=== PATIENT | female | born 1980 | race Caucasian/White ===

== ENCOUNTER 2018-04-01 10:04 | Outpatient (CLI) | payer OTHER ==
[2018-04-01 10:48] LABS: MICROSCOPIC INDICATED
[2018-04-01 11:17] LABS: BASOPHILS # (AUTO) 0.03 x10^3/uL (0-0.1); BASOPHILS % (AUTO) 1 % (0-1); EOSINOPHILS # (AUTO) 0.12 x10^3/uL (0-0.4); EOSINOPHILS % (AUTO) 2 % (1-7); LYMPHOCYTES # (AUTO) 0.81 x10^3/uL (1-3.4); LYMPHOCYTES % (AUTO) 13 % (22-44); MD NO; MEAN CORPUSCULAR HEMOGLOBIN 30.2 pg (27.0-34.8); MEAN CORPUSCULAR HGB CONC 34.5 g/dL (32.4-35.8); MEAN CORPUSCULAR VOLUME 87.8 fL (80-100); MEAN PLATELET VOLUME 9.1 fL (7.4-10.4); MONOCYTES # (AUTO) 0.44 x10^3/uL (0.2-0.8); MONOCYTES % (AUTO) 7 % (2-9); NEUTROPHILS # (AUTO) 4.75 x10^3/uL (1.8-6.8); NEUTROPHILS % (AUTO) 77 % (42-75); PLATELET COUNT 226 x10^3/uL (130-400); RED BLOOD COUNT 4.31 x10^6/uL (3.82-5.3); RED CELL DISTRIBUTION WIDTH 15.2 % (9.6-15.2)
[2018-04-01 11:21] LABS: ALANINE AMINOTRANSFERASE 35 U/L (12-78); ALBUMIN 2.5 g/dL (3.4-5.0); ANION GAP 8 mmol/L (5-15); CALCIUM 8.5 mg/dL (8.5-10.1); CHLORIDE 109 mmol/L (98-107); CREATININE 0.65 mg/dL (0.55-1.02)
[2018-04-01 11:26] LABS: ALKALINE PHOSPHATASE 224 U/L (45-117); BILIRUBIN, DIRECT 0.2 mg/dL (0.1-0.2); BILIRUBIN,TOTAL 0.5 mg/dL (0.2-1.0); TOTAL PROTEIN 6.9 g/dL (6.4-8.2)
[2018-04-01 11:36] VITALS: BP 147/82
[2018-04-01] MEDS ORDERED: PREN1TAB60 PO (11:59)
[2018-04-01] MEDS ORDERED: LABE200T6 PO (12:00)
== END 2018-04-01 12:12 | disposition home or self-care (01) ==
LOC: LDOP 10:04
PROVIDERS: ATTEND Obstetrics & Gynecology
DX: O13.3 Gestational [pregnancy-induced] hypertension without significant proteinuria, third trimester (principal); O24.419 Gestational diabetes mellitus in pregnancy, unspecified control; O14.93 Unspecified pre-eclampsia, third trimester; O34.219 Maternal care for unspecified type scar from previous cesarean delivery; Z3A.38 38 weeks gestation of pregnancy
CPT/HCPCS: 36415; 59025; 80053; 81001; 82248; 82570; 84156; 84550; 85025; 99201; G0463

== ENCOUNTER 2018-04-08 06:07 | Inpatient (IN) | payer OTHER ==
[~2018-04-08] VITALS: Ht 157.5 cm; Wt 112.0 kg
[~2018-04-08 06:07] MED LIST: LABE200T6 PO; PREN1TAB60 PO
[2018-04-08] MEDS ORDERED: OXYTOCIN 30U/ 0.9% NaCL 500ML 500 ML IV SCH (06:34)
[2018-04-08] MEDS ORDERED: LACTATED RINGERS 1,000 ML IV SCH ×2 (06:34→07:00)
[2018-04-08 06:53] LABS: BASOPHILS # (AUTO) 0.02 x10^3/uL (0-0.1); BASOPHILS % (AUTO) 0 % (0-1); EOSINOPHILS # (AUTO) 0.35 x10^3/uL (0-0.4); EOSINOPHILS % (AUTO) 5 % (1-7); LYMPHOCYTES # (AUTO) 0.94 x10^3/uL (1-3.4); LYMPHOCYTES % (AUTO) 13 % (22-44); MD NO; MEAN CORPUSCULAR HEMOGLOBIN 29.7 pg (27.0-34.8); MEAN CORPUSCULAR HGB CONC 34.3 g/dL (32.4-35.8); MEAN CORPUSCULAR VOLUME 86.8 fL (80-100); MEAN PLATELET VOLUME 8.5 fL (7.4-10.4); MONOCYTES # (AUTO) 0.55 x10^3/uL (0.2-0.8); MONOCYTES % (AUTO) 7 % (2-9); NEUTROPHILS # (AUTO) 5.61 x10^3/uL (1.8-6.8); NEUTROPHILS % (AUTO) 75 % (42-75); PLATELET COUNT 211 x10^3/uL (130-400); RED BLOOD COUNT 4.21 x10^6/uL (3.82-5.3); RED CELL DISTRIBUTION WIDTH 15.1 % (9.6-15.2)
[2018-04-08] MEDS ORDERED: METOCLOPRAMIDE 5 MG/ML, 2ML IVPush ONE (07:00)
[2018-04-08] MEDS ORDERED: LACTATED RINGERS 1,000 ML IVBOLUS ONE (07:00)
[2018-04-08] MEDS ORDERED: CEFAZOLIN PMX 1GM/50ML 50 ML IVPB ONE (07:00)
[2018-04-08] MEDS ORDERED: ONDANSETRON 2MG/ML, 2ML ONE (07:19)
[2018-04-08] MEDS ORDERED: DEXAMETHASONE 4 MG/ML, 1ML ONE (07:19)
[2018-04-08] MEDS ORDERED: FENTANYL PF 100 MCG/2ML ONE (07:19)
[2018-04-08] MEDS ORDERED: EPHEDRINE 50 MG/ML, 1ML ONE (07:19)
[2018-04-08] MEDS ORDERED: CEFAZOLIN 1,000 MG ONE (07:19)
[2018-04-08] MEDS ORDERED: PHENYLEPHRINE 10 MG/ML ONE (07:19)
[2018-04-08] MEDS ORDERED: OXYTOCIN 10 UNITS/ML, 1ML ONE (07:19)
[2018-04-08] MEDS ORDERED: KETOROLAC 30 MG/1 ML ONE ×2 (07:19→16:09)
[2018-04-08] MEDS: SODIUM CITRATE/CITRIC ACID 30 ML UDC PO SCH ×4 (07:27→21:00)
[2018-04-08] MEDS: LACTATED RINGERS 1,000 ML IV SCH ×5 (07:30→20:07)
[2018-04-08] MEDS: OXYTOCIN 30U/ 0.9% NaCL 500ML 500 ML IV SCH ×2 (07:30→17:30)
[2018-04-08] MEDS ORDERED: MISOPROSTOL 200 MCG TABLET PR PRN (07:30)
[2018-04-08] MEDS ORDERED: MEPERIDINE/PF 25MG/0.5ML IVPush PRN (07:30)
[2018-04-08] MEDS ORDERED: ALBUTEROL SULFATE 2.5 MG/3 ML NPPB PRN (07:30)
[2018-04-08] MEDS ORDERED: ACETAMINOPHEN 325 MG TABLET PO PRN ×2 (07:30)
[2018-04-08] MEDS ORDERED: ONDANSETRON 2MG/ML, 2ML IV PRN (07:30)
[2018-04-08] MEDS ORDERED: morphine SULFATE 10 MG/ML, 1ML IVPush PRN (07:30)
[2018-04-08] MEDS ORDERED: EPHEDRINE 50 MG/ML, 1ML IVPush PRN (07:30)
[2018-04-08] MEDS ORDERED: hydrALAzine 20 MG/ML, 1ML IV PRN (07:30)
[2018-04-08] MEDS ORDERED: LABETALOL 5MG/ML, 20ML IV PRN (07:30)
[2018-04-08] MEDS ORDERED: HYDROcodone/APAP 7.5-325MG/15ML UDC PO PRN (07:30)
[2018-04-08] MEDS ORDERED: MEPERIDINE/PF 50 MG/ML IM PRN (07:30)
[2018-04-08] MEDS ORDERED: IBUPROFEN 600 MG TABLET PO PRN (07:30)
[2018-04-08] MEDS ORDERED: MIDAZOLAM 1 MG/ML, 2ML IV PRN (07:30)
[2018-04-08] MEDS ORDERED: METOCLOPRAMIDE 5 MG/ML, 2ML IV PRN (07:30)
[2018-04-08] MEDS ORDERED: OXYcodone 5 MG/5 ML ORAL.SOL UDC PO PRN (07:30)
[2018-04-08] MEDS ORDERED: ONDANSETRON 2MG/ML, 2ML IVPush PRN (07:30)
[2018-04-08] MEDS ORDERED: HYDROmorphone 1 MG/ML, 1ML IV PRN (07:30)
[2018-04-08] MEDS ORDERED: PROMETHAZINE 25 MG/ML, 1ML IV PRN (07:30)
[2018-04-08] MEDS ORDERED: FENTANYL PF 100 MCG/2ML IV PRN (07:30)
[2018-04-08] MEDS ORDERED: CARBOPROST TROMETHAMINE 250 MCG/ML, 1ML IM PRN (07:30)
[2018-04-08] MEDS: PRENATAL VIT/IRON/FA 1 EACH TABLET PO SCH (09:00)
[2018-04-08] MEDS ORDERED: OXYTOCIN 30U/ 0.9% NaCL 500ML 500 ML ONE (09:05)
[2018-04-08] MEDS ORDERED: DEXTROSE 40%, 37.5 GM GEL ONE (09:53)
[2018-04-08 11:45] VITALS: BP 135/81
[2018-04-08] MEDS: OXYcodone IR 5MG TABLET PO PRN (13:05)
[2018-04-08] MEDS: KETOROLAC 30 MG/1 ML IVPush SCH ×2 (16:13→22:41)
[2018-04-08 16:30] LABS: MEAN CORPUSCULAR HEMOGLOBIN 29.2 pg (27.0-34.8); MEAN CORPUSCULAR HGB CONC 33.4 g/dL (32.4-35.8); MEAN CORPUSCULAR VOLUME 87.3 fL (80-100); MEAN PLATELET VOLUME 9.5 fL (7.4-10.4); PLATELET COUNT 272 x10^3/uL (130-400); RED BLOOD COUNT 3.64 x10^6/uL (3.82-5.3); RED CELL DISTRIBUTION WIDTH 14.9 % (9.6-15.2)
[2018-04-08 16:47] LABS: BASOPHILS % (AUTO) 0 % (0-1); EOSINOPHILS # (AUTO) 0.02 x10^3/uL (0-0.4); EOSINOPHILS % (AUTO) 0 % (1-7); LYMPHOCYTES # (AUTO) 0.77 x10^3/uL (1-3.4); LYMPHOCYTES % (AUTO) 6 % (22-44); MD SCAN; MONOCYTES # (AUTO) 0.59 x10^3/uL (0.2-0.8); MONOCYTES % (AUTO) 5 % (2-9); NEUTROPHILS # (AUTO) 11.57 x10^3/uL (1.8-6.8); NEUTROPHILS % (AUTO) 89 % (42-75)
[2018-04-08 17:00] VITALS: BP 140/80
[2018-04-08 19:55] VITALS: BP 131/69
[2018-04-08] MEDS: LABETALOL 100 MG TABLET PO SCH (20:45)
[2018-04-08 23:40] VITALS: BP 108/72
[2018-04-09] MEDS: OXYcodone IR 5MG TABLET PO PRN ×3 (02:46→20:57)
[2018-04-09] MEDS: LACTATED RINGERS 1,000 ML IV SCH ×4 (03:30→20:16)
[2018-04-09] MEDS: OXYTOCIN 30U/ 0.9% NaCL 500ML 500 ML IV SCH ×3 (03:30→23:30)
[2018-04-09 04:50] VITALS: BP 136/85
[2018-04-09] MEDS: KETOROLAC 30 MG/1 ML IVPush SCH (04:58)
[2018-04-09] MEDS ORDERED: LACTATED RINGERS 1,000 ML IVBOLUS ONE ×2 (06:30→11:00)
[2018-04-09 07:29] VITALS: BP 138/71
[2018-04-09] MEDS: OXYcodone/APAP 5/325MG TABLET PO PRN (07:50)
[2018-04-09] MEDS: LABETALOL 100 MG TABLET PO SCH ×2 (07:50→17:17)
[2018-04-09] MEDS: PRENATAL VIT/IRON/FA 1 EACH TABLET PO SCH (07:50)
[2018-04-09] MEDS: DOCUSATE 100 MG CAPSULE PO PRN (07:50)
[2018-04-09 07:56] LABS: ALBUMIN 1.8 g/dL (3.4-5.0); ANION GAP 8 mmol/L (5-15); CALCIUM 7.8 mg/dL (8.5-10.1); CHLORIDE 109 mmol/L (98-107)
[2018-04-09 08:00] LABS: ALANINE AMINOTRANSFERASE 28 U/L (12-78); ALKALINE PHOSPHATASE 137 U/L (45-117); BILIRUBIN,TOTAL 0.4 mg/dL (0.2-1.0); CREATININE 1.57 mg/dL (0.55-1.02)
[2018-04-09] MEDS ORDERED: CYSTO CONRAY II 250 ML VIAL UR ONE (09:30)
[2018-04-09 11:30] VITALS: BP 134/73
[2018-04-09 13:00] LABS: MEAN CORPUSCULAR HEMOGLOBIN 30.6 pg (27.0-34.8); MEAN CORPUSCULAR HGB CONC 34.7 g/dL (32.4-35.8); MEAN CORPUSCULAR VOLUME 88.2 fL (80-100); MEAN PLATELET VOLUME 9.4 fL (7.4-10.4); PLATELET COUNT 201 x10^3/uL (130-400); RED BLOOD COUNT 2.08 x10^6/uL (3.82-5.3); RED CELL DISTRIBUTION WIDTH 15.2 % (9.6-15.2)
[2018-04-09] MEDS ORDERED: OMNIPAQUE 350 MG/ML, 50 ML BOTTLE ONE (13:00)
[2018-04-09 13:16] VITALS: BP 153/78
[2018-04-09 13:19] LABS: BASOPHILS # (AUTO) 0.03 x10^3/uL (0-0.1); BASOPHILS % (AUTO) 0 % (0-1); EOSINOPHILS # (AUTO) 0.07 x10^3/uL (0-0.4); EOSINOPHILS % (AUTO) 1 % (1-7); LYMPHOCYTES # (AUTO) 1.16 x10^3/uL (1-3.4); LYMPHOCYTES % (AUTO) 14 % (22-44); MD SCAN; MONOCYTES # (AUTO) 0.72 x10^3/uL (0.2-0.8); MONOCYTES % (AUTO) 9 % (2-9); NEUTROPHILS # (AUTO) 6.14 x10^3/uL (1.8-6.8); NEUTROPHILS % (AUTO) 76 % (42-75)
[2018-04-09] MEDS ORDERED: D5%-LACTATED RINGERS 1,000 ML IV SCH (14:00)
[2018-04-09 15:15] LABS: ALANINE AMINOTRANSFERASE 37 U/L (12-78); ALBUMIN 2.1 g/dL (3.4-5.0); ANION GAP 10 mmol/L (5-15); CALCIUM 7.9 mg/dL (8.5-10.1); CHLORIDE 104 mmol/L (98-107); CREATININE 1.34 mg/dL (0.55-1.02); MEAN CORPUSCULAR HEMOGLOBIN 30.7 pg (27.0-34.8); MEAN CORPUSCULAR HGB CONC 34.6 g/dL (32.4-35.8); MEAN CORPUSCULAR VOLUME 88.7 fL (80-100); MEAN PLATELET VOLUME 8.5 fL (7.4-10.4); PLATELET COUNT 214 x10^3/uL (130-400); RED BLOOD COUNT 2.19 x10^6/uL (3.82-5.3); RED CELL DISTRIBUTION WIDTH 15.4 % (9.6-15.2)
[2018-04-09 15:17] LABS: ALKALINE PHOSPHATASE 155 U/L (45-117); BILIRUBIN,TOTAL 0.3 mg/dL (0.2-1.0); TOTAL PROTEIN 5.4 g/dL (6.4-8.2)
[2018-04-09] MEDS ORDERED: LACTATED RINGERS 1,000 ML IV SCH (15:30)
[2018-04-09 16:30] VITALS: BP 135/71
[2018-04-09 16:36] LABS: MD YES
[2018-04-09 16:41] LABS: BAND#(MANUAL) 0.27 x10^3/uL; BANDS%(MANUAL) 3 % (0-7); LYMPH#(MANUAL) 1.08 x10^3/uL (1-3.4); LYMPHS% (MANUAL) 12 % (22-44); MONOS#(MANUAL) 0.63 x10^3/uL (0.3-2.7); MONOS% (MANUAL) 7 % (2-9); SEG#(MANUAL) 7.02 x10^3/uL (1.8-6.8); SEGS% (MANUAL) 78 % (42-75)
[2018-04-09 16:42] LABS: <PLATELET ESTIMATE> ADEQUATE; ANISOCYTOSIS 1+; POLYCHROMASIA 1+
[2018-04-09 16:43] LABS: <PLT MORPHOLOGY> NORMAL PLT MORPH
[2018-04-09] MEDS: FERROUS SULFATE 325 MG TABLET PO SCH (17:17)
[2018-04-09 20:15] VITALS: BP 119/71
[2018-04-10 00:01] VITALS: BP 122/73
[2018-04-10] MEDS: OXYTOCIN 30U/ 0.9% NaCL 500ML 500 ML IV SCH ×2 (01:27→19:30)
[2018-04-10] MEDS: OXYcodone IR 5MG TABLET PO PRN ×3 (03:38→19:27)
[2018-04-10 03:50] VITALS: BP 132/80
[2018-04-10 06:14] LABS: ANION GAP 7 mmol/L (5-15); CALCIUM 7.9 mg/dL (8.5-10.1); CHLORIDE 109 mmol/L (98-107)
[2018-04-10 06:15] LABS: MEAN CORPUSCULAR HEMOGLOBIN 31.5 pg (27.0-34.8); MEAN CORPUSCULAR VOLUME 87.4 fL (80-100); MEAN PLATELET VOLUME 8.7 fL (7.4-10.4); PLATELET COUNT 199 x10^3/uL (130-400); RED BLOOD COUNT 1.97 x10^6/uL (3.82-5.3); RED CELL DISTRIBUTION WIDTH 16.2 % (9.6-15.2)
[2018-04-10 06:38] LABS: BASOPHILS # (AUTO) 0.01 x10^3/uL (0-0.1); BASOPHILS % (AUTO) 0 % (0-1); EOSINOPHILS % (AUTO) 1 % (1-7); LYMPHOCYTES # (AUTO) 0.99 x10^3/uL (1-3.4); LYMPHOCYTES % (AUTO) 13 % (22-44); MD SCAN; MONOCYTES # (AUTO) 0.64 x10^3/uL (0.2-0.8); MONOCYTES % (AUTO) 8 % (2-9); NEUTROPHILS # (AUTO) 5.87 x10^3/uL (1.8-6.8); NEUTROPHILS % (AUTO) 77 % (42-75)
[2018-04-10 07:22] VITALS: BP 146/83
[2018-04-10] MEDS: LABETALOL 100 MG TABLET PO SCH ×2 (07:48→17:08)
[2018-04-10] MEDS: PRENATAL VIT/IRON/FA 1 EACH TABLET PO SCH (07:48)
[2018-04-10] MEDS: FERROUS SULFATE 325 MG TABLET PO SCH ×2 (07:48→17:07)
[2018-04-10] MEDS: DOCUSATE 100 MG CAPSULE PO PRN ×2 (07:48→19:27)
[2018-04-10 12:08] VITALS: BP 139/86
[2018-04-10 15:53] VITALS: BP 131/73
[2018-04-10 19:45] VITALS: BP 141/80
[2018-04-11 00:05] VITALS: BP 141/85
[2018-04-11] MEDS: OXYcodone IR 5MG TABLET PO PRN ×2 (01:27→16:11)
[2018-04-11] MEDS: LACTATED RINGERS 1,000 ML IV SCH ×3 (01:30→21:30)
[2018-04-11 04:35] VITALS: BP 144/91
[2018-04-11] MEDS: OXYTOCIN 30U/ 0.9% NaCL 500ML 500 ML IV SCH ×2 (05:30→15:30)
[2018-04-11 05:37] LABS: MEAN CORPUSCULAR HEMOGLOBIN 30.5 pg (27.0-34.8); MEAN CORPUSCULAR HGB CONC 34.1 g/dL (32.4-35.8); MEAN CORPUSCULAR VOLUME 89.2 fL (80-100); MEAN PLATELET VOLUME 8.8 fL (7.4-10.4); PLATELET COUNT 212 x10^3/uL (130-400); RED BLOOD COUNT 1.91 x10^6/uL (3.82-5.3); RED CELL DISTRIBUTION WIDTH 15.9 % (9.6-15.2)
[2018-04-11 05:56] LABS: BASOPHILS # (AUTO) 0.02 x10^3/uL (0-0.1); BASOPHILS % (AUTO) 0 % (0-1); EOSINOPHILS # (AUTO) 0.22 x10^3/uL (0-0.4); EOSINOPHILS % (AUTO) 3 % (1-7); LYMPHOCYTES % (AUTO) 14 % (22-44); MD SCAN; MONOCYTES # (AUTO) 0.54 x10^3/uL (0.2-0.8); MONOCYTES % (AUTO) 8 % (2-9); NEUTROPHILS # (AUTO) 5.31 x10^3/uL (1.8-6.8); NEUTROPHILS % (AUTO) 75 % (42-75)
[2018-04-11 08:39] VITALS: BP 146/89
[2018-04-11] MEDS: PRENATAL VIT/IRON/FA 1 EACH TABLET PO SCH (08:48)
[2018-04-11] MEDS: DOCUSATE 100 MG CAPSULE PO PRN (08:48)
[2018-04-11] MEDS: OXYcodone/APAP 5/325MG TABLET PO PRN (08:48)
[2018-04-11] MEDS: FERROUS SULFATE 325 MG TABLET PO SCH ×2 (08:48→17:55)
[2018-04-11] MEDS: LABETALOL 100 MG TABLET PO SCH ×2 (08:49→17:55)
[2018-04-11 12:09] VITALS: BP 148/97
[2018-04-11 16:32] VITALS: BP 146/84
[2018-04-11 19:55] VITALS: BP 146/86
[2018-04-11 21:51] LABS: BASOPHILS # (AUTO) 0.07 x10^3/uL (0-0.1); BASOPHILS % (AUTO) 1 % (0-1); EOSINOPHILS # (AUTO) 0.33 x10^3/uL (0-0.4); EOSINOPHILS % (AUTO) 3 % (1-7); LYMPHOCYTES # (AUTO) 1.08 x10^3/uL (1-3.4); LYMPHOCYTES % (AUTO) 11 % (22-44); MD NO; MEAN CORPUSCULAR HEMOGLOBIN 30.3 pg (27.0-34.8); MEAN PLATELET VOLUME 8.4 fL (7.4-10.4); MONOCYTES # (AUTO) 0.75 x10^3/uL (0.2-0.8); MONOCYTES % (AUTO) 8 % (2-9); NEUTROPHILS # (AUTO) 7.35 x10^3/uL (1.8-6.8); NEUTROPHILS % (AUTO) 77 % (42-75); PLATELET COUNT 276 x10^3/uL (130-400); RED BLOOD COUNT 2.16 x10^6/uL (3.82-5.3); RED CELL DISTRIBUTION WIDTH 15.6 % (9.6-15.2)
[2018-04-12 00:05] VITALS: BP 137/86
[2018-04-12] MEDS: DOCUSATE 100 MG CAPSULE PO PRN ×2 (00:07→09:20)
[2018-04-12] MEDS: OXYcodone IR 5MG TABLET PO PRN ×2 (00:07→09:20)
[2018-04-12] MEDS: OXYTOCIN 30U/ 0.9% NaCL 500ML 500 ML IV SCH ×2 (01:30→11:30)
[2018-04-12 03:55] VITALS: BP 141/87
[2018-04-12 05:06] LABS: BASOPHILS # (AUTO) 0.03 x10^3/uL (0-0.1); BASOPHILS % (AUTO) 0 % (0-1); EOSINOPHILS # (AUTO) 0.26 x10^3/uL (0-0.4); EOSINOPHILS % (AUTO) 4 % (1-7); LYMPHOCYTES % (AUTO) 11 % (22-44); MD NO; MEAN CORPUSCULAR HEMOGLOBIN 30.7 pg (27.0-34.8); MEAN CORPUSCULAR HGB CONC 34.2 g/dL (32.4-35.8); MEAN CORPUSCULAR VOLUME 89.7 fL (80-100); MEAN PLATELET VOLUME 8.3 fL (7.4-10.4); MONOCYTES # (AUTO) 0.51 x10^3/uL (0.2-0.8); MONOCYTES % (AUTO) 7 % (2-9); NEUTROPHILS # (AUTO) 5.96 x10^3/uL (1.8-6.8); NEUTROPHILS % (AUTO) 79 % (42-75); PLATELET COUNT 254 x10^3/uL (130-400); RED BLOOD COUNT 2.02 x10^6/uL (3.82-5.3); RED CELL DISTRIBUTION WIDTH 15.8 % (9.6-15.2)
[2018-04-12 06:55] VITALS: BP 163/91
[2018-04-12] MEDS: LACTATED RINGERS 1,000 ML IV SCH (07:30)
[2018-04-12] MEDS ORDERED: LABETALOL 200 MG TABLET PO SCH (09:00)
[2018-04-12] MEDS: PRENATAL VIT/IRON/FA 1 EACH TABLET PO SCH (09:19)
[2018-04-12] MEDS: FERROUS SULFATE 325 MG TABLET PO SCH (09:19)
[2018-04-12 10:33] LABS: CULTURE INDICATED? YES; MICROSCOPIC INDICATED
[2018-04-12] MEDS ORDERED: DOCU-131 PO (11:39)
[2018-04-12] MEDS ORDERED: FERR325T23 PO (11:41)
[2018-04-12] MEDS ORDERED: OXYC-307 PO (11:42)
[2018-04-14] MEDS ORDERED: IBUPROFEN 600 MG TABLET PO PRN
== END 2018-04-12 12:20 | disposition home or self-care (01) | DRG 765 ==
LOC: LDIP 06:07 → 2NW 10:53
PROVIDERS: ADMIT Obstetrics & Gynecology; ATTEND Obstetrics & Gynecology
PROC: 10D00Z1 Extraction of Products of Conception, Low, Open Approach (ICD-10-PCS; principal; 2018-04-08)
PROC: 0UB70ZZ Excision of Bilateral Fallopian Tubes, Open Approach (ICD-10-PCS; 2018-04-08)
PROC: 0T9B70Z Drainage of Bladder with Drainage Device, Via Natural or Artificial Opening (ICD-10-PCS; 2018-04-12)
DX: O34.211 Maternal care for low transverse scar from previous cesarean delivery (principal); Z68.42 Body mass index [BMI] 45.0-49.9, adult; Z37.0 Single live birth; O99.214 Obesity complicating childbirth; E66.01 Morbid (severe) obesity due to excess calories; O16.4 Unspecified maternal hypertension, complicating childbirth; Z30.2 Encounter for sterilization; Z3A.39 39 weeks gestation of pregnancy; Z82.49 Family history of ischemic heart disease and other diseases of the circulatory system; O24.420 Gestational diabetes mellitus in childbirth, diet controlled
CPT/HCPCS: 36415; 74410; 74455; J7121; 74176; 76857; 80048; 80053; 81001; 82803; 85025; 86850; 86900; 86923; 87086; 88302; J0690; J1100; J1885; J2405; J3010; Q9958; Q9967; J2370; J2590; J2765; J7120